=== PATIENT | female | born 1970 | race Caucasian/White ===

== ENCOUNTER 2016-07-01 06:35 | Day surgery (SDC) | payer MEDICAID ==
[2016-07-01 07:05] VITALS: BMI 35.7
[2016-07-01] MEDS ORDERED: Midazolam 2 MG/2 ML VIAL ONE (07:51)
[2016-07-01] MEDS ORDERED: Propofol 10 mg/ml Inj (20 ML) ONE (07:51)
[2016-07-01 08:00] VITALS: RESP 20; TEMP 97.9; O2SAT 100
--- NOTE | 2016-07-01 08:03 | CP.SDSHP ---
Same Day Surgery H & P - History Proposed Procedure: EGD w/ biopsy Pre-Op Diagnosis: Epigastric pain - Previous Medical/Surgical History Misc: Other (SLE) Previous Surgical History: None - Allergies Allergies: Allergies No Known Allergies Allergy (Verified 07/01/16 07:04) - Current Medications Current Medications: reviewed, per reconciliation - Physical Exam General Appearance: wdwn nad Vital Signs: Vital Signs 07/01/16 07:15 Temperature 97.9 F Pulse Rate 80 Respiratory 20 Rate Blood Pressure 119/77 O2 Sat by Pulse 100 Oximetry Mental Status: Alert & Oriented x3 Heart: WNL Lungs: WNL GI: WNL - {Optional Preform as Required} Abdomen: WNL - Impression Impression: abdominal pain Pt. Evaluated Today:Candidate for Anesthesia & Procedure: Yes - Date & Time Date: 07/01/16 Time: 08:02 Short Stay Discharge - Short Stay Discharge Admitting Diagnosis/Reason for Visit: EPIGASTRIC PAIN Disposition: HOME/ ROUTINE
[2016-07-01] MEDS ORDERED: Lactated Ringer's 500 ML IV ONE (08:05)
[2016-07-01 09:08] VITALS: BP 116/69; PULSE 89
== END 2016-07-01 09:07 | disposition home or self-care (01) ==
LOC: C.ENDO 06:35
PROVIDERS: ATTEND Internal Medicine Gastroenterology
DX: R10.13 Epigastric pain (principal); K29.60 Other gastritis without bleeding; B96.81 Helicobacter pylori [H. pylori] as the cause of diseases classified elsewhere
CPT/HCPCS: 43239; 84703; 88305; J2001; J2250; J2704; J7120